=== PATIENT | male | born 1960 | race Caucasian/White ===

== ENCOUNTER 2017-05-26 17:32 | Emergency (ER) | payer OTHER, MEDICAID ==
[2017-05-26] MEDS: STERILE WATER 1L IRRIG BTL IRR (18:42)
[2017-05-26] MEDS: LIDOCAINE 2% (MDV) 20 ML INJ INJ (18:42)
== END 2017-05-26 19:42 | disposition home or self-care (01) ==
LOC: FTE 17:32
DX: S61.215A Laceration without foreign body of left ring finger without damage to nail, initial encounter (principal); X58.XXXA Exposure to other specified factors, initial encounter; Y92.9 Unspecified place or not applicable; Z79.82 Long term (current) use of aspirin; Z98.61 Coronary angioplasty status
CPT/HCPCS: 12001; 93005; 99283-25